=== PATIENT | female | born 1960 | race Caucasian/White ===

== ENCOUNTER 2017-10-29 09:09 | Emergency (ER) | payer OTHER ==
[~2017-10-29] VITALS: Ht 170.2 cm; Wt 84.1 kg
[2017-10-29 09:13] VITALS: Ht 170.2 cm; Wt 84.1 kg
[2017-10-29] MEDS ORDERED: HYDROCODON-ACE1 EAC7 PO (10:12)
[2017-10-29] MEDS ORDERED: ANAPROX DS550 MG PO (10:12)
[2017-10-29 10:30] VITALS: BP 128/79
[2017-11-08 12:42] VITALS: Ht 170.2 cm; Wt 84.1 kg
== END 2017-10-29 10:31 | disposition home or self-care (01) ==
LOC: D.ER 09:09
DX: S83.92XA Sprain of unspecified site of left knee, initial encounter (principal); X58.XXXA Exposure to other specified factors, initial encounter; Y93.89 Activity, other specified; Y92.019 Unspecified place in single-family (private) house as the place of occurrence of the external cause; F17.200 Nicotine dependence, unspecified, uncomplicated

== ENCOUNTER 2017-11-07 10:55 | Observation (INO) | payer OTHER ==
[~2017-11-07] VITALS: Ht 170.2 cm; Wt 82.4 kg
[~2017-11-07 10:55] MED LIST: ANAPROX DS550 MG PO; HYDROCODON-ACE1 EAC7 PO
[2017-11-07 12:00] VITALS: BP 145/58
[2017-11-07 12:01] LABS: ALBUMIN 3.3 g/dL (3.4-5.0); CALC OSMOLALITY 266 mosm/kg (275-300); CALCIUM 8.3 mg/dL (8.5-10.1); CARBON DIOXIDE 28.7 mmol/L (21.0-32.0); CHLORIDE - SERUM 103 mmol/L (98-107); CREATININE - SERUM 0.9 mg/dL (0.6-1.3); GLUCOSE 106 mg/dL (74-106); POTASSIUM - SERUM 4.1 mmol/L (3.5-5.1); SODIUM 134 mmol/L (136-145); UREA NITROGEN 9 mg/dL (7-18); eGFR NON AFRICAN AMERICAN 68 mL/min (90-120)
[2017-11-07 12:38] LABS: ALKALINE PHOSPHATASE 53 U/L (46-116); ALT (SGPT) 31 U/L (10-68); CKMB 0.3 U/L (0.0-3.6); PRO BNP 506 pg/mL (0-125); PROTEIN - SERUM 7.4 g/dL (6.4-8.2); TROPONIN-I < 0.017 ng/mL (0.000-0.060)
[2017-11-07 12:49] LABS: BASOPHILS 0.3 % (0-2); EOSINOPHILS 0.3 % (0-7); HEMATOCRIT 43.4 % (36.0-48.0); HEMOGLOBIN 14.4 g/dL (12-16); IMMATURE GRANULOCYTES 0.3 % (0-5); LYMPHOCYTES 17.2 % (15-50); MCH 26.2 pg (26.0-34.0); MCHC 33.2 g/dL (31.0-37.0); MCV 78.9 fL (80.0-100.0); MONOCYTES 8.7 % (2-11); NEUTROPHILS 73.2 % (40-80); PLATELET COUNT 98 10x3/uL (130-400); RDW 17.9 % (11.5-14.5); WBC 3.8 10x3/uL (4.8-10.8)
[2017-11-07 13:08] LABS: PLATELET ESTIMATE DECREASED
[2017-11-07 14:00] VITALS: BP 142/65
[2017-11-07 16:30] VITALS: BP 134/62
[2017-11-07 18:00] VITALS: BP 113/48
[2017-11-07] MEDS ORDERED: ATIVAN2 MG PO (19:30)
[2017-11-07] MEDS ORDERED: HYDROCODONE-APA1 TAB PO (19:31)
[2017-11-07] MEDS ORDERED: ZANAFLEX4 MG PO (19:31)
[2017-11-07] MEDS ORDERED: GLUCOPHAGE1000 MG PO (19:31)
[2017-11-07] MEDS ORDERED: AMITRIPTYLINE150 MG PO (19:32)
[2017-11-07] MEDS ORDERED: NEURONTIN600 MG PO (19:33)
[2017-11-07] MEDS ORDERED: PRAVACHOL40 MG PO (19:34)
[2017-11-07 22:11] VITALS: BP 126/57
[2017-11-08 00:41] VITALS: BP 114/54
[2017-11-08 03:27] LABS: MCH 25.9 pg (26.0-34.0); MCHC 32.5 g/dL (31.0-37.0); MCV 79.8 fL (80.0-100.0); PLATELET COUNT 83 10x3/uL (130-400); RBC 5.01 10x6/uL (4.00-5.40); RDW 17.6 % (11.5-14.5)
[2017-11-08 03:57] LABS: WBC 1.6 10x3/uL (4.8-10.8)
[2017-11-08 04:06] LABS: ANION GAP 9.2 mmol/L (8-16); CALCIUM 8.2 mg/dL (8.5-10.1); CARBON DIOXIDE 26.8 mmol/L (21.0-32.0)
[2017-11-08 04:30] LABS: LYMPHOCYTES 26 % (15-50); MONOCYTES 2 % (2-11); NEUTROPHILS 62 % (40-80); PLATELET ESTIMATE DECREASED; PLATELET MORPHOLOGY GIANT PLTS PRESENT
[2017-11-08 05:34] VITALS: BP 129/58
[2017-11-08 07:56] VITALS: BP 132/68
[2017-11-08 10:36] VITALS: BP 141/71
[2017-11-08 12:42] VITALS: Ht 170.2 cm; Wt 82.4 kg
[2017-11-09 07:30] LABS: HEPATITIS C ANTIBODY >11.0 (0.0-0.9)
== END 2017-11-08 14:20 | disposition left against medical advice (07) ==
LOC: D.ER 10:55 → D.EDHOLD 18:26 → D.M2 18:26 → D.EDHOLD 18:26 → OBSVTIME 18:27 → D.M2 19:23
PROVIDERS: Family Medicine; Internal Medicine Hematology & Oncology
DX: J20.9 Acute bronchitis, unspecified (principal); J44.0 Chronic obstructive pulmonary disease with (acute) lower respiratory infection; J44.1 Chronic obstructive pulmonary disease with (acute) exacerbation; D69.6 Thrombocytopenia, unspecified; K74.60 Unspecified cirrhosis of liver; B19.20 Unspecified viral hepatitis C without hepatic coma; F41.9 Anxiety disorder, unspecified; R73.9 Hyperglycemia, unspecified; F17.213 Nicotine dependence, cigarettes, with withdrawal